=== PATIENT | female | born 1955 | race Caucasian/White ===

== ENCOUNTER 2020-11-28 18:58 | Emergency (ER) | payer OTHER, BC ==
[~2020-11-28] VITALS: Ht 162.6 cm; Wt 88.5 kg
[2020-11-28] MEDS ORDERED: SERTRALINE20 MG/1 ML PO (19:33)
[2020-11-28] MEDS ORDERED: XARELTO10 MG PO (19:33)
[2020-11-28] MEDS ORDERED: ALTOPREV40 MG PO (19:33)
[2020-11-28] MEDS ORDERED: SPIRIVA RESPIMAT4 G1 IH (19:34)
== END 2020-11-29 14:32 | disposition home or self-care (01) ==
LOC: ER 18:58
DX: R20.0 Anesthesia of skin (principal)

== ENCOUNTER 2022-07-24 20:31 | Emergency (ER) | payer OTHER ==
[~2022-07-24] VITALS: Ht 162.6 cm; Wt 86.2 kg
[~2022-07-24 20:31] MED LIST: ALTOPREV40 MG PO; SERTRALINE20 MG/1 ML PO; SPIRIVA RESPIMAT4 G1 IH; XARELTO10 MG PO
[2022-07-24] MEDS ORDERED: LIPITOR80 MG PO (21:07)
[2022-07-24] MEDS ORDERED: ZEGERID 40 MG1 EACH PO (21:08)
== END 2022-07-24 22:05 | disposition home or self-care (01) ==
LOC: ER 20:31
DX: M79.632 Pain in left forearm (principal); M25.522 Pain in left elbow; M79.602 Pain in left arm; W18.30XA Fall on same level, unspecified, initial encounter; Y93.9 Activity, unspecified; Y92.9 Unspecified place or not applicable; Y99.9 Unspecified external cause status